=== PATIENT | female | born 1980 | race Hispanic/Latino ===

== ENCOUNTER 2018-11-20 09:00 | Inpatient (IN) | payer OTHER ==
[2018-11-20] MEDS ORDERED: PEPCID IV ONE ×2 (09:49→12:43)
[2018-11-20] MEDS ORDERED: REGLAN IV ONE (09:49)
[2018-11-20] MEDS ORDERED: BICITRA PO ONE (09:49)
[2018-11-20] MEDS ORDERED: LACTATED RINGERS 2,000 ML ONE (09:51)
[2018-11-20] MEDS ORDERED: ANCEF/STERILE WATER 2 GM/20 ML 2 GM/20 ML SYRINGE IV NR (10:00)
[2018-11-20] MEDS ORDERED: LACTATED RINGERS 1,000 ML IV SCH (10:00)
[2018-11-20] MEDS ORDERED: PITOCin/NS 20 UNIT/1000ML DRIP 20 UNITS/1,000 ML BAG IV SCH ×3 (10:00→17:00)
[2018-11-20 10:13] LABS: Basophils # (Auto) 0.1 K/mm3 (0.0-0.1); Basophils % (Auto) 0.8 % (0.0-1.8); Eosinophils # (Auto) 0.1 K/mm3 (0.0-0.4); Eosinophils % (Auto) 1.1 % (0.0-4.3); Hematocrit 37.9 % (30.3-42.9); Hemoglobin 12.5 gm/dl (10.1-14.3); Lymphocytes % (Auto) 17.2 % (13.4-35.0); Mean Corpuscular HGB Conc 33 % (30-34); Mean Corpuscular Volume 88 fl (79-97); Monocytes # (Auto) 0.8 K/mm3 (0.0-0.8); Monocytes % (Auto) 6.7 % (0.0-7.3); Platelet Count 255 K/mm3 (140-440); Red Blood Count 4.29 M/mm3 (3.65-5.03); Red Cell Distribution Width 13.2 % (13.2-15.2)
--- NOTE | 2018-11-20 10:28 | History and Physical Report ---
History of Present Illness Date of examination: 11/20/18 Date of admission: 11/20/18 09:00 Chief complaint: SIUP at 39 weeks gestation not in labor. Previous C/section. History of present illness: Patient is a 38 year old , LMP 02/08/18, EDC 11/24/18 at 39 weeks and 3 days gestation who was admitted for elective repeat C/section. She denies any contractions, fluid leakage or bleeding. She reports good movement. 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 Family/Genetic History: none Social history: no significant social history - Obstetrical History Expected Date of Delivery: 11/24/18 Actual Gestation: 39 Week(s) 3 Day(s) : 3 Para: 2 Number of Living Children: 2 #1 Gender: Female year: 2,[birth year] Birthweight: 2.863 kg Method of Delivery: Gestational age at delivery: 40 Complications: none #2 Infant Gender: Female year: 2,[birth year] Birthweight: 3.43 kg Method of Delivery: Gestational age at delivery: 40 Complications: none Medications and Allergies Allergies Allergy/AdvReac Type Severity Reaction Status Date / Time No Known Allergies Allergy Unverified 11/20/18 11:21 Active Meds: Active Medications Citric Acid/Sodium Citrate (Bicitra) 30 ml PO ONCE ONE Stop: 11/20/18 09:50 Famotidine (Pepcid) 20 mg IV ONCE ONE Stop: 11/20/18 09:50 Cefazolin Sodium (Ancef/Sterile Water 2 Gm/20 Ml) 2 gm in 20 mls @ 80 mls/hr IV PREOP NR; Protocol Lactated Ringer's (Lactated Ringers) 1,000 mls @ 2,250 mls/hr IV PREOP AGATA Stop: 11/21/18 10:27 Oxytocin/Sodium Chloride (Pitocin/Ns 20 Unit/1000ml Drip) 20 units in 1,000 mls @ 0 mls/hr IV TITR AGATA Oxytocin/Sodium Chloride (Pitocin/Ns 20 Unit/1000ml Drip) 20 units in 1,000 mls @ 125 mls/hr IV DIRECT AGATA Metoclopramide HCl (Reglan) 10 mg IV ONCE ONE Stop: 11/20/18 09:50 - Physical Exam Cardiovascular: Normal S1, Normal S2 Lungs: Positive: Clear to auscultation Vulva: both: normal Adnexa: both: normal Deep Tendon Reflex Grade: Normal +2 - Obstetrical FHR: category 1 Uterine Contraction Monitor Mode: External Cervical Dilatation: 0 Cervical Effacement Percentage: 0 station: -2 Uterine Contraction Pattern: Absent Results Result Diagrams: 11/20/18 09:40 Abnormal lab results 11/20/18 Range/Units 09:40 WBC 11.7 H (4.5-11.0) K/mm3 Seg Neutrophils % 74.2 H (40.0-70.0) % Seg Neutrophils # 8.7 H (1.8-7.7) K/mm3 All other labs normal. Assessment and Plan - Patient Problems (1) 39 weeks gestation of Current Visit: Yes Status: Acute (2) Previous section Current Visit: Yes Status: Acute Plan to address problem: Admit to labor floor. Routine preop labs. IV hydration. Keep NPO. monitoring. Admit to labor floor. Patient was counselled for repeat C/section. Risks, benefits, and alternatives of the procedure were discussed in detail with the patient which included but not limited to the risk of infection, hemorrhage requiring blood transfusion, injury to the bowel or bladder and blood vessels. The patient expressed understanding, her questions were answered, and she gave informed consent. Anesthesia notified.
[2018-11-20] MEDS ORDERED: SENSORCAINE/DEXTR 0.75-8.25% INFILTRATI ONE (10:30)
[2018-11-20] MEDS ORDERED: SUBLIMAZE ONE ×2 (10:31→15:37)
[2018-11-20] MEDS ORDERED: DILAUDID ONE (10:31)
[2018-11-20] MEDS ORDERED: BICITRA ONE (12:42)
[2018-11-20] MEDS ORDERED: REGLAN ONE (12:43)
[2018-11-20] MEDS ORDERED: XYLOCAINE MPF 2% ONE ×2 (14:33)
[2018-11-20] MEDS ORDERED: NACL 0.9% IR ONE (15:13)
[2018-11-20] MEDS ORDERED: WATER FOR IRRIG STERILE IR ONE (15:13)
[2018-11-20] MEDS ORDERED: TORADOL ONE (16:04)
[2018-11-20] MEDS ORDERED: ZOFRAN IV PRN ×2 (16:11→16:18)
[2018-11-20] MEDS ORDERED: PHENERGAN PR PRN (16:11)
[2018-11-20] MEDS ORDERED: PHENERGAN PO PRN (16:11)
[2018-11-20] MEDS ORDERED: NARCAN 0.4 MG/1 ML IV PRN ×2 (16:11→16:18)
[2018-11-20] MEDS ORDERED: TORADOL IV PRN ×3 (16:12→16:18)
[2018-11-20] MEDS ORDERED: TUCKS PAD TP PRN (16:18)
[2018-11-20] MEDS ORDERED: SENOKOT PO PRN (16:18)
[2018-11-20] MEDS ORDERED: TYLENOL PO PRN (16:18)
[2018-11-20] MEDS ORDERED: ANUCORT-HC PR PRN (16:18)
[2018-11-20] MEDS ORDERED: MORPHINE IV PRN ×2 (16:18)
[2018-11-20] MEDS ORDERED: MILK OF MAGNESIA PO PRN (16:18)
[2018-11-20] MEDS ORDERED: LANSINOH TP PRN (16:18)
--- NOTE | 2018-11-20 16:25 | Operative Report ---
Operative Report Operative Report: Preoperative diagnosis 1. SIUP at 39 weeks gestation not in labor. 2. Previous C/section x 2. Postoperative diagnosis: Same. Procedure: Repeat low-transverse section. Surgeon: Dr. Rosas Velvet Cutter: none Anesthesia: epidural. IVF: RL 1500 cc EBL: 700 cc Urine: 100 cc clear Complications: none. Intraoperative findings: 1. A male found in an BUTCH position, delivered at 3:11 PM, Apgars 8 at 1 minute and 9 at 5 minutes, weight 8 lbs. 2 oz. 2. Normal fallopian tubes and ovaries bilaterally. Procedure details: Risks, benefits, and alternatives of the procedure were discussed in detail with the patient which included but not limited to the risk of infection, hemorrhage requiring blood transfusion, injury to the bowel or bladder and blood vessels. The patient expressed understanding, her questions were answered, and she gave informed consent. The patient was taken to the operating room with an IV fluid infusing Ringers lactate. In the operating room, she was placed in a sitting position and given spinal anesthesia. She was then placed in a dorsal supine position with a leftward tilt. Barrera catheter in Venodyne boots were placed. The abdomen was washed and she was prepared and draped in usual sterile fashion. After confirming adequate anesthesia, the Pfannenstiel skin incision was made in the lower abdomen about 2 cm above the pubic symphysis using the scalpel. This incision was carried down to the underlying fascia using the Bovie. The fascia was opened bilaterally in a curvilinear fashion using the Bovie. 2 straight Kocker clamps were used to grasp the upper edge of the fascia from which the underlying rectus abdominis muscles was dissected off using the Bovie. A similar procedure was done with the lower edge of the fascia to dissect the underlying rectus abdominis muscle. The muscle was bluntly from the midline by pulling. The parietal peritoneum was grasped with 2 hemostat clamps and entered sharply using Metzenbaum scissors. A quick survey of the anatomy revealed a gravid uterus, normal fallopian tubes and ovaries bilaterally. A bladder flap was created. Keenan'O retractor was placed in the incision for proper visualization. A low transverse incision was made in the lower uterine segment using the scalpel and extended bilaterally in a curvilinear fashion using bandage scissors. There was copious amount of clear amniotic fluids. The was found in an BUTCH position, the head was delivered atraumatically followed by the delivery of the shoulders and the rest of the body at 3:11 PM. The cord was clamped 2 and cut and the infant was handed off to the waiting annealing oven operator. The infant was a male, Apgars were 8 at 1 minute and 9 at 5 minutes, weight was 8 pounds and 2 ounces. Cord blood was collected. The placenta was delivered manually and it was complete with a three-vessel cord. The uterine cavity was cleaned of clots and debris using dry lap sponges. The uterine incision was repaired in a running locked fashion using 0 Vicryl sutures. A second layer of imbrication was placed. The gutters were cleaned of clots and debris using dry lap sponges. After confirming adequate hemostasis, the instruments were removed from the abdominal cavity. The rectus muscle was reapproximated in an interrupted fashion using 0 Vicryl sutures. The fascia was closed in a running fashion using 0 Vicryl sutures. The skin was closed with juan diego. Sterile dressing was placed. The counts of laps, needles, sponges, and instruments were correct 2. The patient tolerated the procedure well, she was taken to the recovery room in a stable condition.
[2018-11-20] MEDS ORDERED: MYLICON PO PRN (16:28)
[2018-11-20] MEDS ORDERED: SODIUM CHLORIDE FLUSH SYRINGE 10 ML IV SCH ×2 (17:00)
[2018-11-20] MEDS: BENADRYL PO PRN (18:10)
[2018-11-21] MEDS ORDERED: D5LR 1,000 ML IV SCH (01:00)
[2018-11-21] MEDS: BENADRYL PO PRN (02:08)
[2018-11-21 05:10] LABS: Hematocrit 29.4 % (30.3-42.9); Hemoglobin 9.7 gm/dl (10.1-14.3)
[2018-11-21] MEDS: PERCOCET 5/325 PO PRN (06:41)
[2018-11-21] MEDS: FEOSOL PO SCH (09:57)
[2018-11-21] MEDS: PRENATAL VITAMIN PO SCH (09:57)
--- NOTE | 2018-11-21 11:23 | Progress Note ---
Assessment and Plan A: POD#1 s/p Primary c/s Pain well controlled Stable P: Routine PP/PO orders Abdominal Binder Encouraged ambulation in room Advance diet as tolerated Anticipate discharge home in 24-48 hrs Subjective - Subjective Date of service: 11/21/18 Principal diagnosis: POD#1 s/p Primary c/s Patient reports: appetite normal, voiding normally, pain well controlled, flatus, ambulating normally, no bowel movement [place]: doing well, other (breast/bottle) Objective - Vital Signs Latest vital signs: Vital Signs Temp Pulse Resp BP BP Pulse Ox 11/21/18 08:38 98.1 F 64 20 113/56 11/21/18 06:41 18 11/21/18 06:10 98.3 F 68 18 117/56 11/20/18 23:55 98.8 F 63 18 130/71 11/20/18 20:28 98.5 F 66 18 114/59 11/20/18 17:30 98.1 F 57 L 18 121/68 11/20/18 16:55 98.2 F 65 14 117/61 97 11/20/18 16:46 65 12 137/68 97 11/20/18 16:35 62 12 128/76 97 11/20/18 16:15 63 14 138/70 97 11/20/18 16:10 56 L 14 126/78 96 11/20/18 16:05 55 L 16 128/64 99 11/20/18 15:58 98.1 F 80 20 131/60 99 Intake and Output 11/20/18 11/21/18 11/21/18 23:59 07:59 15:59 Intake Total 400 260 480 Output Total 50 1250 700 Balance 350 -990 -220 Intake: IV 400 Oral 480 Intake, Free Water 260 Output: Urine 50 1250 700 Indwelling Catheter 1250 Void 700 Other: Total, Intake Amount 240 Total, Output Amount 500 700 # Voids Void 1 - Exam Breasts: Present: normal, Cardiovascular: Present: Regular rate, Normal S1, Normal S2, No murmurs Lungs: Present: Clear to auscultation, Normal air movement Abdomen: Present: normal appearance, soft, tenderness (as expected Post-op), normal bowel sounds. Absent: distention Vulva: both: normal Uterus: Present: firm, fundal height at umbilicus Extremities: Present: normal Deep Tendon Reflex Grade: Normal +2 Incision: Present: dry, intact, dressed (Pressure dressing CDI) - Labs Labs: Abnormal lab results 11/21/18 Range/Units 04:39 Hgb 9.7 L (10.1-14.3) gm/dl Hct 29.4 L D (30.3-42.9) %
[2018-11-21] MEDS: IBUPROFEN PO PRN ×2 (11:37→18:02)
[2018-11-22] MEDS: PERCOCET 5/325 PO PRN ×2 (01:11→10:21)
--- NOTE | 2018-11-22 10:18 | Progress Note ---
Assessment and Plan - Patient Problems (1) Status post repeat low transverse section Current Visit: Yes Status: Acute Plan to address problem: POD 2 - stable Continue routine postop orders Ambulation/abdominal binder encouraged prn Discharge to home 11/23/18 Follow up at [facility] TECHNICIAN in 1 week for incision check/juan diego removal (2) Anemia in puerperium, baby delivered during current episode of care Current Visit: Yes Status: Acute Plan to address problem: Asymptomatic Continue iron therapy Subjective - Subjective Date of service: 11/22/18 Principal diagnosis: POD #2; s/p Repeat LTCS Patient reports: appetite normal, voiding normally, pain well controlled, ambulating normally, no dizzy ambulation [place]: doing well, other (breast and bottle feeding) Objective - Vital Signs Latest vital signs: Vital Signs Temp Pulse Resp BP 11/22/18 08:45 97.7 F 71 18 130/69 11/22/18 00:51 98.4 F 69 18 119/64 11/21/18 16:15 98.3 F 106 H 20 106/58 11/21/18 12:15 98.3 F 63 20 117/54 Intake and Output 11/21/18 11/22/18 11/22/18 23:59 07:59 15:59 Intake Total 300 1400 360 Balance 300 1400 360 Intake: IV 1000 D5lr 1,000 ml @ 125 mls/ 1000 hr IV DIRECT AGATA Rx#: [id number] Oral 300 360 Intake, Free Water 400 Other: Total, Intake Amount 300 360 # Voids Void 1 2 1 - Exam Cardiovascular: Present: Regular rate Lungs: Present: Clear to auscultation Abdomen: Present: normal appearance, soft Vulva: both: normal Uterus: Present: normal, firm, fundal height below umbilicus Extremities: Present: normal Incision: Present: normal, dry, intact, other (juan diego in place) Comments: scant lochia
[2018-11-22] MEDS: FEOSOL PO SCH (10:21)
[2018-11-22] MEDS: PRENATAL VITAMIN PO SCH (10:23)
--- NOTE | 2018-11-22 10:26 | Discharge Summary ---
Providers - Providers Date of Admission: 11/20/18 09:00 Date of discharge: 11/23/18 Attending physician: JUDD CASTRO MD Primary care physician: JUDD CASTRO MD Hospitalization Reason for admission: section, IUP at term Delivery: Procedure: repeat low transverse Episiotomy: none Laceration: none Incision: normal, dry, intact, other (juan diego in place) Other procedures: none complications: none Discharge diagnosis: IUP at term delivered [place] baby: male Hospital course: Uncomplicated Condition at discharge: Stable Disposition: DC-01 TO HOME OR SELFCARE - Discharge Diagnoses (1) Status post repeat low transverse section Status: Acute (2) Anemia in puerperium, baby delivered during current episode of care Status: Acute Comment: Asymptomatic Continue iron therapy Plan - Discharge Medications Prescriptions: Ferrous Sulfate [Feosol 325 MG tab] 325 mg PO QDAY #30 tablet Ibuprofen [Motrin] 800 mg PO Q8HR PRN #30 tablet PRN Reason: Pain, Moderate (4-6) oxyCODONE /ACETAMINOPHEN [Percocet 5/325] 1 tab PO Q4HR #14 tab - Provider Discharge Summary Activity: routine, no sex for 6 weeks, no heavy lifting 4 weeks, no strenuous exercise Diet: routine Instructions: routine Additional instructions: [] Smoking cessation referral if applicable(refer to patient education folder for contact #) [] Refer to [facility]'s [facility] Booklet Call your doctor immediately for: * Fever > 100.5 * Heavy vaginal bleeding ( >1 pad per hour) * Severe persistent headache * Shortness of breath * Reddened, hot, painful area to leg or breast * Drainage or odor from incision. * Keep incision clean and dry at all times and follow doctor's instructions regarding bathing/showering - Follow up plan Follow up: JUDD CASTRO MD [Primary Care Provider] - 7 Days (Follow up at [facility] in 1 week for incision check/juan diego removal )
[2018-11-22] MEDS: IBUPROFEN PO PRN (16:06)
[2018-11-23] MEDS: PERCOCET 5/325 PO PRN ×2 (00:30→10:26)
[2018-11-23] MEDS: FEOSOL PO SCH (09:56)
[2018-11-23] MEDS: PRENATAL VITAMIN PO SCH (09:56)
[2018-11-23] MEDS: IBUPROFEN PO PRN (10:25)
[2018-11-23 14:13] VITALS: BP 138/78
== END 2018-11-23 13:30 | disposition home or self-care (01) | DRG 766 ==
LOC: APU 09:00 → OB 17:27
PROVIDERS: ADMIT Obstetrics & Gynecology; ATTEND Obstetrics & Gynecology
PROC: 10D00Z1 Extraction of Products of Conception, Low, Open Approach (ICD-10-PCS; principal; 2018-11-20)
DX: O34.211 Maternal care for low transverse scar from previous cesarean delivery (principal); Z3A.39 39 weeks gestation of pregnancy; Z37.0 Single live birth; Z90.49 Acquired absence of other specified parts of digestive tract; O90.81 Anemia of the puerperium; D64.9 Anemia, unspecified
CPT/HCPCS: 36415; 85014; 85018; 85025; 86850; 86900; 86901; G0378; A6250; J0690; J1170; J1885; J2405; J2590; J2765; J3010; J7120; J7121